=== PATIENT | female | born 1980 | race Hispanic/Latino ===

== ENCOUNTER 2019-08-19 13:25 | Emergency (ER) | payer BC, MEDICARE ==
--- NOTE | 2019-08-19 14:17 | RAD ---
EXAM: Right knee 4 views: HISTORY: Right knee pain following injury COMPARISON: None FINDINGS: Prominent soft tissue fullness. Marked vascular calcifications particularly for a patient of this age. No acute fracture or dislocation or other significant acute osseous abnormality. IMPRESSION: No fracture or dislocation. Marked vascular calcification.
[2019-08-19] MEDS ORDERED: Bacitracin 1 PK ONE (14:32)
== END 2019-08-19 14:41 | disposition home or self-care (01) ==
LOC: ERS 13:25
DX: S80.01XA Contusion of right knee, initial encounter (principal); S50.811A Abrasion of right forearm, initial encounter; E11.40 Type 2 diabetes mellitus with diabetic neuropathy, unspecified; E11.22 Type 2 diabetes mellitus with diabetic chronic kidney disease; I12.0 Hypertensive chronic kidney disease with stage 5 chronic kidney disease or end stage renal disease; N18.6 End stage renal disease; W18.30XA Fall on same level, unspecified, initial encounter

== ENCOUNTER 2019-09-02 11:44 | Observation (INO) | payer MEDICARE ==
[2019-09-02] MEDS ORDERED: Dextrose 50% Abboject 50 ML SYRINGE ONE (11:55)
[2019-09-02 12:12] LABS: #Basophils 0.1 thou/uL (0.0-0.2); #Eosinphils 0.2 thou/uL (0.0-0.7); #Lymphocytes 0.8 thou/uL (1.20-3.40); #Monocytes 0.2 thou/uL (0.11-0.59); #Neutrophils 4.6 thou/uL (1.40-6.50); %Basophils 1.1 % (0.0-1.0); %Eosinophils 2.6 % (0.0-10.0); %Lymphocytes 14.1 % (21.0-51.0); %Monocytes 3.3 % (0.0-10.0); %Neutrophils 78.9 % (42.0-75.0); Hemoglobin 11.6 g/dL (12.0-16.0); Mean Corpuscular HGB CONC 33.3 g/dL (32.0-36.0); Mean Corpuscular Hemoglobin 30.2 pg (27.0-31.0); Mean Corpuscular Volume 90.5 fL (78.0-98.0); Mean Platelet Volume 8.6 fL (7.4-10.4); Platelet Count 182 thou/uL (130-400); RBC Distribution Width 15.6 % (11.5-14.5); Red Blood Cell (RBC) Count 3.83 mill/uL (4.20-5.40); White Blood Cell (WBC) Count 5.9 thou/uL (4.8-10.8)
--- NOTE | 2019-09-02 12:16 | RAD ---
EXAM: Single view of the chest HISTORY: Altered mental status. Dialysis patient COMPARISON: 08/20/2016 FINDINGS: Single view of the chest shows an enlarged cardiomediastinal silhouette. There is no eviden ce of consolidation, mass, or pleural effusion. The bones are unremarkable. IMPRESSION: Cardiomegaly
--- NOTE | 2019-09-02 12:32 | CT ---
EXAM: CT brain without contrast HISTORY: Altered mental status COMPARISON: None TECHNIQUE: Multiple contiguous axial images were obtained and a CT of the brain without contrast. FINDINGS: The brain is normal in morphology and attenuation without focal lesions or confluent areas of infarction. There is no evidence of hydrocephalus, intracranial hemorrhage, or extra-axial fluid collection. The calvarium and overlying soft tissues are unremarkable. The visualized paranasal sinuses and masto id air cells are well aerated. IMPRESSION: No evidence of acute intracranial abnormality
[2019-09-02 12:33] LABS: ALT (SGPT) 10 U/L (8-55); AST (SGOT) 11 U/L (5-34); Albumin 3.1 g/dL (3.5-5.0); Alkaline Phosphatase 120 U/L (40-110); Anion Gap 18 mmol/L (10-20); BUN (Urea Nitrogen) 30 mg/dL (7.0-18.7); Bilirubin, Total 0.4 mg/dL (0.2-1.2); Calc. Creatinine Clearance 0 mL/min (70-130); Calcium 8.2 mg/dL (7.8-10.44); Carbon Dioxide 30 mmol/L (22-29); Chloride 94 mmol/L (98-107); Estimated GFR-MDRD 3; Globulin 2.9 g/dL (2.4-3.5); Potassium 3.1 mmol/L (3.5-5.1); Sodium 139 mmol/L (136-145)
[2019-09-02 12:35] LABS: Glucose 50 mg/dL (70-105)
[2019-09-02 12:55] LABS: CKMB 3.2 ng/mL (0-6.6)
[2019-09-02] MEDS ORDERED: Cefepime 2 GM VIAL ONE (13:09)
[2019-09-02] MEDS ORDERED: Cefepime 2 GM in Sodium Chloride 0.9% 100 ML IVPB SCH (13:15)
[2019-09-02] MEDS ORDERED: Vancomycin HCl 1.25 GM in Sodium Chloride 0.9% 250 ML 250 ML IVPB SCH (13:30)
[2019-09-02] MEDS ORDERED: Ondansetron PF 4 MG/2 ML Vial IVP PRN (15:11)
[2019-09-02] MEDS ORDERED: Acetaminophen 325 MG TAB PO PRN (15:11)
[2019-09-02] MEDS ORDERED: Aspirin Chewable 81 MG TAB ONE (15:16)
--- NOTE | 2019-09-02 15:44 | PDOC.HHP ---
Hospitalist HPI - History of Present Illness AMS, low blood sugar History of Present Illness: Ms. Stringer is a 38 y/o lady with PMH of ESRD on HD, T2DM, HTN who presents to the ED with altered mental status. Apparently on presentation, her BSG was 56 and she was altered and lethargic. She was given 100mL of D10 and blood sugar improved to 100. Upon my evaluation, she is much more alert and states that she did not eat much yesterday and continued with her regular of 12 units of insulin yesterday. She states she was told by her primary care that she has diabetic gastroparesis and she notes that she has difficulty at times with passage of food. Additionally, she was found to have temperature of 91 in the ED and placed on a bear hugger. When inquiring about this she states that she feels cold all the time. Apparently, her last known A1C to her was around 7. She has had a similar episode where she becomes hypoglycemic at night and she feels very lethargic. Denies cp, sob, fever, chills, nausea, vomiting, or diarrhea. Hospitalist ROS - Review of Systems Constitutional: reports: sweats. denies: fever, chills, weakness, malaise, other Eyes: denies: pain, vision change, conjunctivae inflammation, eyelid inflammation, redness, other ENT: denies: ear pain, ear discharge, nose pain, nose discharge, nose congestion , mouth pain, mouth swelling, throat pain, throat swelling, other Respiratory: denies: cough, dry, shortness of breath, hemoptysis, SOB with excertion, pleuritic pain, sputum, wheezing, other Cardiovascular: denies: chest pain, palpitations, orthopnea, paroxysmal noc. dyspnea, edema, light headedness, other Gastrointestinal: denies: nausea, vomiting, abdominal pain, diarrhea, constipation, melena, hematochezia, other Genitourinary: denies: dysuria, frequency, incontinence, hematuria, retention, other Musculoskeletal: denies: neck pain, shoulder pain, arm pain, back pain, hand pain, leg pain, foot pain, other Skin: denies: rash, lesions, gabriel, bruising, other Neurological: reports: weakness. denies: numbness, incoordination, change in speech, confusion, seizures, other - Medication Medications: Active Medications Acetaminophen (Tylenol) 650 mg PO Q4H PRN PRN Reason: Headache/Fever/Mild Pain (1-3) Amlodipine Besylate (Norvasc) 5 mg PO DAILY [facility] Calcitriol (Rocaltrol) 0.25 mcg PO DAILY [facility] Carvedilol (Coreg) 12.5 mg PO DAILY [facility] Cinacalcet (Sensipar) 60 mg PO DAILY [facility] Dextrose/Water (Dextrose 50%) 25 gm IVP PRN PRN PRN Reason: HYPOGLYCEMIA PROTOCOL Glucagon (Glucagon) 1 mg IM PRN PRN PRN Reason: HYPOGLYCEMIA PROTOCOL Dextrose/Water (D5w) 1,000 mls @ 0 mls/hr IV INF PRN PRN Reason: HYPOGLYCEMIA PROTOCOL Insulin Human Lispro (Humalog) 0 units SC .MILD SLIDING SCALE PRN; Protocol PRN Reason: MILD SLIDING SCALE Insulin Human Lispro (Humalog) 0 units SC .BEDTIME SLIDING SC PRN; Protocol PRN Reason: BEDTIME SLIDING SCALE Losartan Potassium (Cozaar) 100 mg PO HS [facility] Losartan Potassium (Cozaar) 100 mg PO NOW [facility] Stop: 09/02/19 23:59 Last Admin: 09/02/19 22:08 Dose: 100 mg Ondansetron HCl (Zofran) 4 mg IVP Q6H PRN PRN Reason: Nausea/Vomiting Bromfenac Sodium ( (Prolensa)) 0 each EA EYE BID [facility] Rosuvastatin Calcium (Crestor) 10 mg PO HS [facility] Sevelamer Carbonate (Renvela) 2,400 mg PO TID-[facility] Hospitalist History - Past Medical History Cardiac: reports: HTN Pulmonary: reports: no pertinent history [employer]: reports: no pertinent history Gastrointestinal: reports: Other (Gastroparesis) Heme/Onc: reports: no pertinent history Hepatobiliary: reports: no pertinent history Psych: reports: no pertinent history Musculoskeletal: reports: no pertinent history Rheumatologic: reports: no pertinent history Infectious Disease: reports: no pertinent history ENT: reports: no pertinent history Renal/: reports: Chronic renal insuff Endocrine: reports: Diabetes Dermatology: reports: no pertinent history - Past Surgical History Past Surgical History: reports: Hernia Repair - Family History Family History: reports: diabetes mellitus, hypertension - Social History Smoking Status: Never smoker Alcohol: reports: None Drugs: reports: none Living Situation: With Family - Exam General Appearance: NAD, awake alert Eye: PERRL, anicteric sclera ENT: normocephalic atraumatic, no oropharyngeal lesions, moist mucosa Neck: supple, symmetric, no JVD, no thyromegaly, no lymphadenopathy, no carotid bruit Heart: RRR, no murmur, no gallops, no rubs, normal peripheral pulses Respiratory: CTAB, no wheezes, no rales, no ronchi, normal chest expansion, no tachypnea, normal percussion Gastrointestinal: soft, non-tender, non-distended, normal bowel sounds, no palpable masses, no hepatomegaly, no splenomegaly, no bruit Extremities: no cyanosis, no clubbing, no edema Extremities - other findings: right 5th toe amputation Skin: normal turgor, no lesions, no rashes Neurological: cranial nerve grossly intact, normal sensation to touch, no weakness, no focal deficits, no new deficit Musculoskeletal: normal tone, normal strength, no muscle wasting Psychiatric: normal affect, normal behavior, A&O x 3 Hospitalist Results - Labs Result Diagrams: 09/02/19 12:09/02/19 12:02 Lab results: WBC 5.9 thou/uL (4.8-10.8) 09/02/19 12:02 Hgb 11.6 g/dL (12.0-16.0) L 09/02/19 12:02 Hct 34.7 % (36.0-47.0) L 09/02/19 12:02 MCV 90.5 fL (78.0-98.0) 09/02/19 12:02 Plt Count 182 thou/uL (130-400) 09/02/19 12:02 Neutrophils % 78.9 % (42.0-75.0) H 09/02/19 12:02 Sodium 139 mmol/L (136-145) 09/02/19 12:02 Potassium 3.1 mmol/L (3.5-5.1) L 09/02/19 12:02 Chloride 94 mmol/L (98-107) L 09/02/19 12:02 Carbon Dioxide 30 mmol/L (22-29) H 09/02/19 12:02 BUN 30 mg/dL (7.0-18.7) H 09/02/19 12:02 Creatinine 14.02 mg/dL (0.6-1.1) H 09/02/19 12:02 Glucose 50 mg/dL (70-105) L* 09/02/19 12:02 Calcium 8.2 mg/dL (7.8-10.44) 09/02/19 12:02 Total Bilirubin 0.4 mg/dL (0.2-1.2) 09/02/19 12:02 AST 11 U/L (5-34) 09/02/19 12:02 ALT 10 U/L (8-55) 09/02/19 12:02 Alkaline Phosphatase 120 U/L (40-110) H 09/02/19 12:02 CK-MB (CK-2) 3.2 ng/mL (0-6.6) 09/02/19 12:02 Troponin I 0.063 ng/mL (< 0.028) H 09/02/19 12:02 B-Natriuretic Peptide 2792.4 pg/mL (0-100) H 09/02/19 12:02 Serum Total Protein 6.0 g/dL (6.0-8.3) 09/02/19 12:02 Albumin 3.1 g/dL (3.5-5.0) L 09/02/19 12:02 - EKG Interpretation EKG: EKG shows normal sinus rhythm, Rate (beats per minute): 65, Conduction normal, ST, T waves, [place] normal - Radiology Interpretation CT scan - head Status: report reviewed by wi Hospitalist H&P A/P - Problem (1) Hypoglycemia Code(s): E16.2 - HYPOGLYCEMIA, UNSPECIFIED Status: Acute (2) Hypothermia Code(s): T68.XXXA - HYPOTHERMIA, INITIAL ENCOUNTER Status: Acute Qualifiers: Qualified Code(s): T68.XXXD - Hypothermia, subsequent encounter Assessment and Plan: likely due low blood sugar (3) Acute encephalopathy Code(s): G93.40 - ENCEPHALOPATHY, UNSPECIFIED Status: Acute (4) ESRD on peritoneal dialysis Code(s): N18.6 - END STAGE RENAL DISEASE; Z99.2 - DEPENDENCE ON RENAL DIALYSIS Status: Acute (5) Hypertension Code(s): I10 - ESSENTIAL (PRIMARY) HYPERTENSION Status: Acute (6) DM2 (diabetes mellitus, type 2) Status: Chronic Qualifiers: Diabetes mellitus senior care insulin use: without terminal press operator use Diabetes mellitus complication status: without complication Qualified Code(s): E11.9 - Type 2 diabetes mellitus without complications - Plan Plan: Admit for tele obs status. BSG now 164, pt much more alert, encephalopahty improving Continue with bear hugger to restore normal temp Check TSH and Free T4, although probably hypothermia related to hypoglycemic episodes She takes 12 units of Insulin at home, medication to be reconciled, will check at A1C and observe for the time being and adjustment in the AM Hypoglycemia protocol, diabetic diet Nephro recs for dialysis appreciated DVT Prophylaxis: SCDs Code status: Full code Disposition: Correction of metabolic abnormalities. Probable d/c in the AM. Follow up TSH/T4 and A1C.
[2019-09-02 15:49] LABS: Troponin I 0.021 ng/mL (< 0.028)
[2019-09-02 16:10] LABS: Hemoglobin A1c 8.1 % (4.0-6.0)
[2019-09-02 16:43] LABS: Free T4 (Free Thyroxine) 0.92 ng/dL (0.70-1.48); Thyroid Stimulating Hormone 1.5323 uIU/mL (0.35-4.94)
[2019-09-02 17:55] VITALS: BMI 34.7
[2019-09-02 18:35] LABS: Troponin I 0.042 ng/mL (< 0.028)
[2019-09-02] MEDS ORDERED: Potassium Chloride 20 MEQ TAB PO SCH (19:45)
[2019-09-02] MEDS ORDERED: Dextrose 50% Abboject 50 ML SYRINGE IVP PRN (21:47)
[2019-09-02] MEDS ORDERED: Dextrose 5% in Water 1,000 ML IV PRN (21:47)
[2019-09-02] MEDS ORDERED: HumaLOG 300 UNITS/3 ML VIAL SC PRN (21:47)
[2019-09-02] MEDS ORDERED: Losartan 25 MG TAB PO SCH (22:00)
[2019-09-03 05:32] LABS: #Basophils 0.1 thou/uL (0.0-0.2); #Eosinphils 0.2 thou/uL (0.0-0.7); #Lymphocytes 1.3 thou/uL (1.20-3.40); #Monocytes 0.5 thou/uL (0.11-0.59); #Neutrophils 5.9 thou/uL (1.40-6.50); %Basophils 1.6 % (0.0-1.0); %Eosinophils 2.2 % (0.0-10.0); %Monocytes 5.9 % (0.0-10.0); %Neutrophils 74.4 % (42.0-75.0); Hemoglobin 10.9 g/dL (12.0-16.0); Mean Corpuscular HGB CONC 33.3 g/dL (32.0-36.0); Mean Corpuscular Hemoglobin 30.3 pg (27.0-31.0); Mean Platelet Volume 8.8 fL (7.4-10.4); Platelet Count 198 thou/uL (130-400); RBC Distribution Width 15.5 % (11.5-14.5); White Blood Cell (WBC) Count 7.9 thou/uL (4.8-10.8)
[2019-09-03 05:51] LABS: Anion Gap 23 mmol/L (10-20); BUN (Urea Nitrogen) 33 mg/dL (7.0-18.7); Calc. Creatinine Clearance 8 mL/min (70-130); Calcium 8.2 mg/dL (7.8-10.44); Carbon Dioxide 22 mmol/L (22-29); Chloride 96 mmol/L (98-107); Estimated GFR-MDRD 3; Glucose 210 mg/dL (70-105); Sodium 137 mmol/L (136-145)
[2019-09-03] MEDS: HumaLOG 300 UNITS/3 ML VIAL SC PRN ×2 (05:57→12:03)
[2019-09-03] MEDS ORDERED: Carvedilol 6.25 MG TAB PO SCH (09:00)
[2019-09-03] MEDS ORDERED: Cinacalcet HCl 30 MG TAB PO SCH (09:00)
[2019-09-03] MEDS ORDERED: BROMFENAC SODIUM EA EYE SCH (09:00)
[2019-09-03] MEDS ORDERED: Amlodipine 5 MG TAB PO SCH (09:00)
[2019-09-03] MEDS ORDERED: Calcitriol 0.25 MCG CAP PO SCH (09:00)
[2019-09-03] MEDS: Sevelamer Carbonate 800 MG TAB PO SCH ×2 (09:20→11:37)
[2019-09-03 12:18] VITALS: BP 165/84; TEMP 98.8
--- NOTE | 2019-09-03 12:40 | PDOC.HOSPP ---
- Subjective Encounter Date: 09/03/19 Encounter Time: 12:39 Subjective: Ms. Stringer was seen today in follow-up of hypoglycemia. She says she feels fine today. - Objective Vital Signs & Weight: Vital Signs (12 hours) Temp Pulse Resp BP Pulse Ox 09/03/19 10:50 98.8 F 85 18 165/84 H 97 09/03/19 09:21 83 09/03/19 07:56 98.7 F 83 16 161/84 H 96 09/03/19 03:45 98.0 F 82 16 179/88 H 95 Weight Weight 207 lb 11.2 oz I&O: 09/02/19 09/03/19 09/04/19 06:59 06:59 06:59 Intake Total 390 240 Output Total 1242 Balance 390 -1002 Result Diagrams: 09/03/19 04:52 09/03/19 04:52 Additional Labs: Accuchecks 09/03/19 09/03/19 09/02/19 10:56 05:58 21:03 POC Glucose 226 H 203 H 244 H 09/02/19 09/02/19 17:54 15:41 POC Glucose 116 H 110 Hospitalist ROS - Medication Medications: Active Medications Generic Name Dose Route Start Last Admin Trade Name Freq PRN Reason Stop Dose Admin Amlodipine Besylate 5 mg 09/03/19 09:00 09/03/19 09:21 Norvasc PO 5 mg DAILY [facility] Administration Calcitriol 0.25 mcg 09/03/19 09:00 09/03/19 09:21 Rocaltrol PO 0.25 mcg DAILY [facility] Administration Carvedilol 12.5 mg 09/03/19 09:00 09/03/19 09:21 Coreg PO 12.5 mg DAILY [facility] Administration Cinacalcet 60 mg 09/03/19 09:00 09/03/19 09:21 Sensipar PO 60 mg DAILY [facility] Administration Insulin Human Lispro 0 units 09/02/19 21:47 09/03/19 12:03 Humalog SC 3 unit .MILD SLIDING SCALE PRN Administration MILD SLIDING SCALE Protocol Sevelamer Carbonate 2,400 mg 09/03/19 08:00 09/03/19 11:37 Renvela PO 2,400 mg TID-[facility] Administration - Exam Eye: PERRL Heart: RRR, no murmur, no gallops, no rubs, normal peripheral pulses Respiratory: CTAB, no wheezes, no rales, no ronchi, normal chest expansion Gastrointestinal: soft, non-tender, non-distended, normal bowel sounds, no palpable masses, no hepatomegaly Extremities: no cyanosis, no edema Hosp A/P (1) Hypoglycemia Code(s): E16.2 - HYPOGLYCEMIA, UNSPECIFIED Status: Acute (2) ESRD on peritoneal dialysis Code(s): N18.6 - END STAGE RENAL DISEASE; Z99.2 - DEPENDENCE ON RENAL DIALYSIS Status: Chronic (3) Hypertension Code(s): I10 - ESSENTIAL (PRIMARY) HYPERTENSION Status: Chronic (4) DM2 (diabetes mellitus, type 2) Status: Chronic Qualifiers: Diabetes mellitus direct marketing intern insulin use: without direct marketing intern use Diabetes mellitus complication status: without complication Qualified Code(s): E11.9 - Type 2 diabetes mellitus without complications - Plan * Hypoglycemia- discussed in detail * Will start her back on Trujeo, at 10 units a day, and cut the dose of Humalog to 5 units with the largest meal. * Stable for discharge home with close outpatient follow-up.
--- NOTE | 2019-09-03 17:01 | DIS ---
DATE OF ADMISSION: 09/02/2019 DATE OF DISCHARGE: 09/03/2019 PRIMARY CARE PHYSICIAN: Dr. Hall at [facility]. DISCHARGE DISPOSITION: Home. DISCHARGE DIAGNOSES: 1. Hypoglycemia. 2. End-stage renal disease, on peritoneal dialysis. 3. Hypertension. 4. Diabetes mellitus, type 2, insulin dependent. DISCHARGE MEDICATIONS: Include; 1. Toujeo SoloStar pen 10 units subcu q.p.m. 2. Continue Humalog, but decrease the dose to 5 units with the largest meal. 3. Amlodipine 5 mg daily. 4. Renvela 2400 mg p.o. t.i.d. 5. Crestor 10 mg daily. 6. Cozaar 100 mg daily. 7. Cinacalcet 60 mg daily. 8. Carvedilol 12.5 mg daily. 9. Calcitriol 0.25 mcg p.o. daily. 10. Prolensa one drop in each eye twice daily. 11. Tessalon Perles 100 mg p.o. t.i.d. PROCEDURES DONE DURING ADMISSION: The patient had a CT scan of the brain, which was negative for any acute intracranial abnormality. CODE STATUS: Full code. ALLERGIES: NO KNOWN DRUG ALLERGIES. HOSPITAL COURSE: Ms. Stringer is a pleasant 38-year-old female, who was admitted to the hospital after experiencing a hypoglycemic episode. The patient says that she has had a previous episode like this before. She tells me that she had run out of her Toujeo several months ago and was unable to get it filled because she had not been able to see her microbiology teacher. She had been taking the short-acting Humalog with meals, and she had taken it after her evening meal the day before this happened. We are therefore going to place her back on the [employer]. She had been on 15 units, but we will start her on 10 units daily at bedtime along with the Humalog but only 5 units with the largest meal. She is to record her blood sugars 3 times a day and also postprandial and record these and take these into her microbiology teacher. She says that she has an appointment scheduled in the mid part of September and her insulin can then be titrated further. Job ID: [id number]
[2019-09-03] MEDS ORDERED: Losartan 25 MG TAB PO SCH (21:00)
[2019-09-03] MEDS ORDERED: Rosuvastatin 10 MG TAB PO SCH (21:00)
--- NOTE | 2019-09-05 11:12 | CON ---
DATE OF CONSULTATION: 09/03/2019 CONSULTING PHYSICIAN: Aniceto Mooney MD REASON FOR CONSULTATION: End-stage renal disease evaluation and care. REASON FOR ADMISSION: Altered mentation. HISTORY OF PRESENT ILLNESS: This is a 38-year-old female with history of end-stage renal disease, type 2 diabetes, and hypertension, who came into the hospital with altered mentation. She does dialysis at home, PD dialysis and Nephrology was consulted. The patient is feeling better this morning now and has tolerated dialysis well. PAST MEDICAL HISTORY: Positive for end-stage renal disease, hypertension, and type 2 diabetes. PAST SURGICAL HISTORY: Dialysis access hernia repair. HOME MEDICATIONS: Reviewed. ALLERGIES: NO KNOWN DRUG ALLERGIES. SOCIAL HISTORY: No smoking, alcohol, or illicit drugs abuse. FAMILY HISTORY: Positive for diabetes. REVIEW OF SYSTEMS: CONSTITUTIONAL: Negative for weight loss or gain, ability to conduct usual activities. SKIN: Negative for rash, itching. EYES: Negative for double vision, pain. ENT/MOUTH: Negative for nose bleeding, neck stiffness, pain, tenderness. CARDIOVASCULAR: Negative for palpitations, dyspnea on exertion, orthopnea. RESPIRATORY: Negative for shortness of breath, wheezing, cough, hemoptysis, fever or night sweats. GASTROINTESTINAL: Negative for poor appetite, abdominal pain, heartburn, nausea, vomiting, constipation, or diarrhea. GENITOURINARY: Negative for urgency, frequency, dysuria, nocturia. MUSCULOSKELETAL: Negative for pain, swelling. NEUROLOGIC/PSYCHIATRIC: Negative for anxiety, depression. ALLERGY/IMMUNOLOGIC: Negative for skin rash, bleeding tendency. PHYSICAL EXAMINATION: GENERAL: Reveals a well-built female, in no apparent distress. VITAL SIGNS: Temperature 98.8, pulse 85, respiratory rate 18, and blood pressure . HEENT: Atraumatic, normocephalic. Oral mucosa is moist. NECK: Supple. CARDIOVASCULAR: S1 and S2 heard. Rate and rhythm regular. RESPIRATORY: Clear. GASTROINTESTINAL: Abdomen is soft. MUSCULOSKELETAL: 1+ edema. DERMATOLOGIC: No skin rash. NEUROLOGIC: Alert and awake. PSYCHIATRIC: Mood and affect are normal. LABORATORY DATA: Hemoglobin is 10.9. Potassium 4.0, BUN is 33, and creatinine . ASSESSMENT AND PLAN: 1. End-stage renal disease. Continue on peritoneal dialysis. The patient tolerated peritoneal dialysis well. 2. Anemia. 3. Edema, controlled. 4. History of hypertension. Plan to continue on PD dialysis as tolerated. We will follow. Job ID: [id number]
== END 2019-09-03 16:10 | disposition home or self-care (01) ==
LOC: ERS 11:44 → ERHOLD 14:47 → INTOOBSV 14:47 → 2SW 17:34
PROVIDERS: ADMIT Internal Medicine; ATTEND Emergency Medicine
DX: E11.649 Type 2 diabetes mellitus with hypoglycemia without coma (principal); G93.40 Encephalopathy, unspecified; I12.0 Hypertensive chronic kidney disease with stage 5 chronic kidney disease or end stage renal disease; E11.22 Type 2 diabetes mellitus with diabetic chronic kidney disease; N18.6 End stage renal disease; D63.1 Anemia in chronic kidney disease; E11.43 Type 2 diabetes mellitus with diabetic autonomic (poly)neuropathy; K31.84 Gastroparesis; T68.XXXA Hypothermia, initial encounter; Z79.4 Long term (current) use of insulin; Z79.899 Other long term (current) drug therapy; Z99.2 Dependence on renal dialysis
CPT/HCPCS: 70450; 71045; 80048; 82553; 82962 ×2; 83036; 83880; 84439; 84484 ×2; 85025; 87040; 93005; 96365; 96367; 96375; 99291; G0378 ×3; 36415; 36416; 80053; 84443; 90945; A4353; G0257; J0692; J3370; J3490; J7050

== ENCOUNTER 2021-03-04 18:16 | Emergency (ER) | payer MEDICARE, OTHER ==
[2021-03-04] MEDS ORDERED: HYDROcodone/Acetaminophen 7.5/325 mg Tablet ONE ×2 (20:43→20:44)
== END 2021-03-04 21:20 | disposition home or self-care (01) ==
LOC: ERS 18:16
DX: S92.141A Displaced dome fracture of right talus, initial encounter for closed fracture (principal); E11.43 Type 2 diabetes mellitus with diabetic autonomic (poly)neuropathy; K31.84 Gastroparesis; I12.0 Hypertensive chronic kidney disease with stage 5 chronic kidney disease or end stage renal disease; E11.22 Type 2 diabetes mellitus with diabetic chronic kidney disease; N18.6 End stage renal disease; M81.0 Age-related osteoporosis without current pathological fracture; E11.40 Type 2 diabetes mellitus with diabetic neuropathy, unspecified; E11.51 Type 2 diabetes mellitus with diabetic peripheral angiopathy without gangrene; X50.9XXA Other and unspecified overexertion or strenuous movements or postures, initial encounter
CPT/HCPCS: 29515